=== PATIENT | female | born 1955 | race Caucasian/White ===

== ENCOUNTER 2018-07-03 06:28 | Inpatient (IN) | payer MEDICARE, MEDICAID ==
[2018-07-03 06:48] LABS: ADD MAN DIFF? NO
[2018-07-03] MEDS ORDERED: GELATIN SIZE 100 SPONGE (06:55)
[2018-07-03 07:01] LABS: BASOPHILS % 0.3 % (0.0-2.0); EOSINOPHILS # 0.2 10^3/ul (0.0-0.5); EOSINOPHILS % 1.7 % (0.0-7.0); HEMOGLOBIN 13.2 g/dl (12.0-16.0); LYMPHOCYTES # 3.3 10^3/ul (0.8-2.9); LYMPHOCYTES % 27.6 % (15.0-51.0); MEAN CORPUSCULAR HEMOGLOBIN 27.3 pg (29.0-33.0); MEAN CORPUSCULAR HGB CONC 30.7 g/dl (32.0-37.0); MEAN CORPUSCULAR VOLUME 88.8 fl (82.0-101.0); MEAN PLATELET VOLUME 9.5 fl (7.4-10.4); MONOCYTE # 0.7 10^3/ul (0.3-0.9); MONOCYTES % 6.3 % (0.0-11.0); NEUTROPHIL # 7.5 10^3/ul (1.6-7.5); NEUTROPHILS % 63.7 % (39.0-77.0); PLATELET COUNT 420 10^3/UL (140-415); RED BLOOD COUNT 4.84 10^6/ul (4.20-5.40); RED CELL DISTRIBUTION WIDTH 21.3 % (11.5-14.5)
[2018-07-03 07:01] LABS: WHITE BLOOD COUNT 11.8 10^3/ul (4.8-10.8)
[2018-07-03 07:17] LABS: INR 0.91; PROTIME 12.3 Sec (11.9-14.9)
[2018-07-03] MEDS ORDERED: ROCURONIUM 50 MG INJ (07:26)
[2018-07-03] MEDS ORDERED: PROPOFOL 20 ML (07:26)
[2018-07-03] MEDS ORDERED: FENTAnyl 50 MCG/ML VIAL (07:26)
[2018-07-03] MEDS ORDERED: CEFAZOLIN 1 GM INJ (07:26)
[2018-07-03] MEDS ORDERED: GLYCOPYRROLATE 0.4 MG INJ (07:26)
[2018-07-03] MEDS ORDERED: NEOSTIGMINE 3 MG/3 ML SYRINGE (07:26)
[2018-07-03] MEDS ORDERED: MIDAZOLAM 1 MG/ML 2 ML INJ (07:26)
[2018-07-03 07:27] LABS: ALANINE AMINOTRANSFERASE 15 IU/L (13-69); ALBUMIN 4.1 g/dl (3.3-4.9); ALBUMIN/GLOBULIN RATIO 1.07; ALKALINE PHOSPHATASE 114 IU/L (42-121); ANION GAP 9 (5-13); ASPARTATE AMINO TRANSFERASE 24 IU/L (15-46); BILIRUBIN,INDIRECT 0.3 mg/dl (0-1.1); BILIRUBIN,TOTAL 0.3 mg/dl (0.2-1.3); BLOOD UREA NITROGEN 13 mg/dl (7-20); CALCIUM 9.9 mg/dl (8.4-10.2); CARBON DIOXIDE 27 mmol/L (21-31); CHLORIDE 105 mmol/L (97-110); CREATININE 0.51 mg/dl (0.44-1.00); Estimated GFR > 60 mL/min (>60); GLUCOSE 95 mg/dl (70-220); POTASSIUM 4.1 mmol/L (3.5-5.1); SODIUM 141 mmol/L (135-144); TOTAL PROTEIN 7.9 g/dl (6.1-8.1)
[2018-07-03] MEDS ORDERED: DEXAMETHASONE 4 MG/ML 1 ML INJ (07:27)
[2018-07-03] MEDS ORDERED: ONDANSETRON 4 MG INJ (07:27)
[2018-07-03] MEDS ORDERED: MIDAZOLAM 1 MG/ML 2 ML INJ IV (07:30)
[2018-07-03] MEDS ORDERED: ALBUTEROL 0.083% (NEB) 2.5 MG/3 ML AMP HHN (07:30)
[2018-07-03] MEDS ORDERED: OXYCODONE/ACETAMINOPHEN (5/325) TAB PO ×2 (07:30)
[2018-07-03] MEDS ORDERED: TRIMETHOBENZAMIDE 100 MG/ML VIAL IM (07:30)
[2018-07-03] MEDS ORDERED: DIPHENHYDRAMINE 50 MG INJ IV (07:30)
[2018-07-03] MEDS ORDERED: LABETALOL HCL 20MG INJ IV ×2 (07:30→13:00)
[2018-07-03] MEDS ORDERED: HYDROmorphONE 1 MG/5 ML IV SYRINGE IV ×3 (07:30)
[2018-07-03] MEDS ORDERED: hydrALAzine 20 MG INJ IV ×3 (07:30→15:30)
[2018-07-03] MEDS ORDERED: FENTAnyl 50 MCG/ML VIAL IV ×2 (07:30)
[2018-07-03] MEDS ORDERED: EPHEDrine SULFATE 50 MG/5 ML SYG IV (07:30)
[2018-07-03] MEDS ORDERED: MEPERIDINE 25 MG INJ IV (07:30)
[2018-07-03] MEDS ORDERED: IPRATROPIUM (NEB) 0.5 MG/2.5 ML AMP HHN (07:30)
[2018-07-03] MEDS: POLYMYXIN/BACITRACIN 1L IRRIG (08:54)
[2018-07-03] MEDS: THROMBIN 5000 UNIT VIAL (08:55)
[2018-07-03] MEDS: ROPIVACAINE 0.5 % 30 ML VIAL (08:55)
[2018-07-03] MEDS ORDERED: hydrALAzine 20 MG INJ (09:27)
[2018-07-03] MEDS ORDERED: THROMBIN 5000 UNIT VIAL (09:52)
[2018-07-03] MEDS ORDERED: SUGAMMADEX SODIUM 200 MG/2 ML VIAL IV (10:19)
[2018-07-03] MEDS ORDERED: NACL 0.9% 3 ML SYG IV (11:00)
[2018-07-03] MEDS ORDERED: NALOXONE (0.4 MG/ML) INJ IV (11:00)
[2018-07-03] MEDS: ONDANSETRON 4 MG INJ IV (11:16)
[2018-07-03] MEDS: FENTAnyl 50 MCG/ML VIAL IV (11:16)
[2018-07-03] MEDS ORDERED: HYDROmorphONE 1 MG/ML SYG IV ×2 (11:30)
[2018-07-03] MEDS: HYDROmorphONE 1 MG/ML SYG IV (12:28)
[2018-07-03] MEDS: NS + KCL 20 MEQ 1,000 ML IV ×2 (13:00→20:25)
[2018-07-03] MEDS ORDERED: ONDANSETRON 4 MG INJ IV (15:30)
[2018-07-03] MEDS: HYDROCODONE/APAP (5/325) TAB PO ×2 (16:37→20:26)
[2018-07-03] MEDS: HYDROmorphONE 2 MG/ML SYG IV (17:41)
[2018-07-03] MEDS: CEFAZOLIN 2 GM/50 ML (PMX) 50 ML IVPB ×2 (18:41→22:34)
[2018-07-03] MEDS: GABAPENTIN 400 MG CAP PO (20:25)
[2018-07-04] MEDS: NS + KCL 20 MEQ 1,000 ML IV (04:27)
[2018-07-04] MEDS: HYDROCODONE/APAP (5/325) TAB PO ×4 (04:36→21:49)
[2018-07-04 05:04] LABS: HEMATOCRIT 33.8 % (37.0-47.0); HEMOGLOBIN 10.4 g/dl (12.0-16.0)
[2018-07-04 05:32] LABS: ANION GAP 8 (5-13); BLOOD UREA NITROGEN 11 mg/dl (7-20); CARBON DIOXIDE 25 mmol/L (21-31); CHLORIDE 108 mmol/L (97-110); CREATININE 0.38 mg/dl (0.44-1.00); Estimated GFR > 60 mL/min (>60); GLUCOSE 88 mg/dl (70-220); POTASSIUM 4.2 mmol/L (3.5-5.1); SODIUM 141 mmol/L (135-144)
[2018-07-04] MEDS: PANTOPRAZOLE (EC) 40 MG TAB PO (05:36)
[2018-07-04] MEDS: CEFAZOLIN 2 GM/50 ML (PMX) 50 ML IVPB ×3 (05:36→21:49)
[2018-07-04] MEDS: DULOXETINE 30 MG CAP DR PO (09:08)
[2018-07-04] MEDS: GABAPENTIN 400 MG CAP PO ×3 (09:08→20:45)
[2018-07-04] MEDS: HYDROmorphONE 2 MG/ML SYG IV ×2 (11:14→17:37)
[2018-07-05] MEDS: HYDROmorphONE 2 MG/ML SYG IV (03:41)
[2018-07-05 05:30] LABS: ADD MAN DIFF? NO
[2018-07-05 05:47] LABS: WHITE BLOOD COUNT 16.1 10^3/ul (4.8-10.8)
[2018-07-05 05:47] LABS: ABNORMAL IP MESSAGE 1; BASOPHILS % 0.2 % (0.0-2.0); EOSINOPHILS % 0.2 % (0.0-7.0); HEMATOCRIT 36.2 % (37.0-47.0); HEMOGLOBIN 10.9 g/dl (12.0-16.0); LYMPHOCYTES # 3.9 10^3/ul (0.8-2.9); LYMPHOCYTES % 24.1 % (15.0-51.0); MEAN CORPUSCULAR HEMOGLOBIN 28.2 pg (29.0-33.0); MEAN CORPUSCULAR HGB CONC 30.1 g/dl (32.0-37.0); MEAN CORPUSCULAR VOLUME 93.5 fl (82.0-101.0); MEAN PLATELET VOLUME 9.8 fl (7.4-10.4); MONOCYTE # 1.6 10^3/ul (0.3-0.9); MONOCYTES % 9.8 % (0.0-11.0); NEUTROPHIL # 10.4 10^3/ul (1.6-7.5); PLATELET COUNT 321 10^3/UL (140-415); RED BLOOD COUNT 3.87 10^6/ul (4.20-5.40); RED CELL DISTRIBUTION WIDTH 21.8 % (11.5-14.5)
[2018-07-05 05:52] LABS: POSITIVE DIFF @See below
[2018-07-05] MEDS: CEFAZOLIN 2 GM/50 ML (PMX) 50 ML IVPB (06:06)
[2018-07-05] MEDS: PANTOPRAZOLE (EC) 40 MG TAB PO (06:06)
[2018-07-05 06:16] LABS: ANION GAP 5 (5-13); BLOOD UREA NITROGEN 11 mg/dl (7-20); CALCIUM 8.1 mg/dl (8.4-10.2); CARBON DIOXIDE 29 mmol/L (21-31); CHLORIDE 106 mmol/L (97-110); CREATININE 0.42 mg/dl (0.44-1.00); Estimated GFR > 60 mL/min (>60); GLUCOSE 103 mg/dl (70-220); POTASSIUM 4.4 mmol/L (3.5-5.1); SODIUM 140 mmol/L (135-144)
[2018-07-05] MEDS: GABAPENTIN 400 MG CAP PO ×3 (08:43→20:34)
[2018-07-05] MEDS: DULOXETINE 30 MG CAP DR PO (08:43)
[2018-07-05] MEDS: HYDROCODONE/APAP (5/325) TAB PO ×3 (08:43→19:40)
[2018-07-05] MEDS: CYCLOBENZAPRINE 10 MG TAB PO (22:54)
[2018-07-06] MEDS: HYDROCODONE/APAP (5/325) TAB PO ×5 (03:46→21:50)
[2018-07-06] MEDS: PANTOPRAZOLE (EC) 40 MG TAB PO (06:35)
[2018-07-06] MEDS: GABAPENTIN 400 MG CAP PO ×3 (08:36→20:28)
[2018-07-06] MEDS: DULOXETINE 30 MG CAP DR PO (08:37)
[2018-07-06] MEDS: CYCLOBENZAPRINE 10 MG TAB PO ×3 (08:37→21:26)
[2018-07-06] MEDS: AL HYDROX/MG HYDROX/SIMETH 30 ML CUP PO ×2 (12:37→17:33)
[2018-07-06 14:45] LABS: ADD MAN DIFF? NO
[2018-07-06 14:47] LABS: BASOPHILS % 0.2 % (0.0-2.0); EOSINOPHILS # 0.1 10^3/ul (0.0-0.5); HEMATOCRIT 33.8 % (37.0-47.0); HEMOGLOBIN 10.3 g/dl (12.0-16.0); LYMPHOCYTES # 2.5 10^3/ul (0.8-2.9); LYMPHOCYTES % 17.9 % (15.0-51.0); MEAN CORPUSCULAR HEMOGLOBIN 27.7 pg (29.0-33.0); MEAN CORPUSCULAR HGB CONC 30.5 g/dl (32.0-37.0); MEAN CORPUSCULAR VOLUME 90.9 fl (82.0-101.0); MEAN PLATELET VOLUME 9.6 fl (7.4-10.4); MONOCYTE # 1.2 10^3/ul (0.3-0.9); MONOCYTES % 8.5 % (0.0-11.0); NEUTROPHIL # 10.2 10^3/ul (1.6-7.5); NEUTROPHILS % 71.8 % (39.0-77.0); PLATELET COUNT 315 10^3/UL (140-415); RED BLOOD COUNT 3.72 10^6/ul (4.20-5.40); RED CELL DISTRIBUTION WIDTH 20.7 % (11.5-14.5)
[2018-07-06 14:47] LABS: WHITE BLOOD COUNT 14.2 10^3/ul (4.8-10.8)
[2018-07-06 15:07] LABS: ANION GAP 7 (5-13); BLOOD UREA NITROGEN 10 mg/dl (7-20); CALCIUM 8.6 mg/dl (8.4-10.2); CARBON DIOXIDE 29 mmol/L (21-31); CHLORIDE 101 mmol/L (97-110); CREATININE 0.44 mg/dl (0.44-1.00); Estimated GFR > 60 mL/min (>60); GLUCOSE 114 mg/dl (70-220); POTASSIUM 4.1 mmol/L (3.5-5.1); SODIUM 137 mmol/L (135-144)
[2018-07-06 15:08] LABS: LACTIC ACID 0.8 mmol/L (0.5-2.0)
[2018-07-07 05:28] LABS: ADD MAN DIFF? NO
[2018-07-07 05:37] LABS: BASOPHILS % 0.3 % (0.0-2.0); EOSINOPHILS # 0.3 10^3/ul (0.0-0.5); EOSINOPHILS % 2.2 % (0.0-7.0); HEMATOCRIT 31.7 % (37.0-47.0); LYMPHOCYTES # 2.7 10^3/ul (0.8-2.9); LYMPHOCYTES % 21.2 % (15.0-51.0); MEAN CORPUSCULAR HEMOGLOBIN 28.2 pg (29.0-33.0); MEAN CORPUSCULAR HGB CONC 31.5 g/dl (32.0-37.0); MEAN CORPUSCULAR VOLUME 89.5 fl (82.0-101.0); MEAN PLATELET VOLUME 9.9 fl (7.4-10.4); MONOCYTES % 8.1 % (0.0-11.0); NEUTROPHIL # 8.5 10^3/ul (1.6-7.5); NEUTROPHILS % 67.6 % (39.0-77.0); PLATELET COUNT 337 10^3/UL (140-415); RED BLOOD COUNT 3.54 10^6/ul (4.20-5.40); RED CELL DISTRIBUTION WIDTH 20.5 % (11.5-14.5)
[2018-07-07 05:37] LABS: WHITE BLOOD COUNT 12.6 10^3/ul (4.8-10.8)
[2018-07-07] MEDS: PANTOPRAZOLE (EC) 40 MG TAB PO (06:07)
[2018-07-07] MEDS: HYDROCODONE/APAP (5/325) TAB PO ×2 (06:07→22:28)
[2018-07-07 06:19] LABS: ANION GAP 8 (5-13); BLOOD UREA NITROGEN 8 mg/dl (7-20); CALCIUM 8.5 mg/dl (8.4-10.2); CARBON DIOXIDE 29 mmol/L (21-31); CHLORIDE 103 mmol/L (97-110); CREATININE 0.41 mg/dl (0.44-1.00); Estimated GFR > 60 mL/min (>60); GLUCOSE 95 mg/dl (70-220); POTASSIUM 4.1 mmol/L (3.5-5.1); SODIUM 140 mmol/L (135-144)
[2018-07-07] MEDS: CYCLOBENZAPRINE 10 MG TAB PO ×3 (09:16→20:46)
[2018-07-07] MEDS: DULOXETINE 30 MG CAP DR PO (09:16)
[2018-07-07] MEDS: GABAPENTIN 400 MG CAP PO ×3 (09:17→20:46)
[2018-07-07] MEDS: HYDROmorphONE 0.5 MG/0.5 ML SYG IV ×3 (09:17→18:54)
[2018-07-07] MEDS: AL HYDROX/MG HYDROX/SIMETH 30 ML CUP PO ×2 (14:09→20:46)
[2018-07-08] MEDS: PANTOPRAZOLE (EC) 40 MG TAB PO (06:16)
[2018-07-08] MEDS: AL HYDROX/MG HYDROX/SIMETH 30 ML CUP PO (06:16)
[2018-07-08] MEDS: HYDROCODONE/APAP (5/325) TAB PO ×3 (07:58→17:16)
[2018-07-08] MEDS: DULOXETINE 30 MG CAP DR PO (09:05)
[2018-07-08] MEDS: CYCLOBENZAPRINE 10 MG TAB PO ×2 (09:06→12:53)
[2018-07-08] MEDS: GABAPENTIN 400 MG CAP PO ×2 (09:06→12:53)
== END 2018-07-08 17:15 | DRG 458 ==
LOC: REC 06:28 → MS1 07-05 05:57 → ICU 10:42
PROC: 0SG10K1 Fusion of 2 or more Lumbar Vertebral Joints with Nonautologous Tissue Substitute, Posterior Approach, Posterior Column, Open Approach (ICD-10-PCS; principal; 2018-07-03 07:30)
PROC: 0QB00ZX Excision of Lumbar Vertebra, Open Approach, Diagnostic (ICD-10-PCS; 2018-07-03 07:30)
PROC: 0SG30K1 Fusion of Lumbosacral Joint with Nonautologous Tissue Substitute, Posterior Approach, Posterior Column, Open Approach (ICD-10-PCS; 2018-07-03 07:30)
PROC: 0QB10ZX Excision of Sacrum, Open Approach, Diagnostic (ICD-10-PCS; 2018-07-03 07:30)
DX: M48.56XA Collapsed vertebra, not elsewhere classified, lumbar region, initial encounter for fracture (principal); M54.5 Low back pain; E66.9 Obesity, unspecified; Z68.31 Body mass index [BMI] 31.0-31.9, adult; Z90.49 Acquired absence of other specified parts of digestive tract; Z90.710 Acquired absence of both cervix and uterus; K21.9 Gastro-esophageal reflux disease without esophagitis; D72.829 Elevated white blood cell count, unspecified
CPT/HCPCS: 71045; 72100; 72131; 80048; 80053; 83605; 85014; 85018; 85025; 85610; 85730; 86850; 86900; 86901; 87081; 88304; 88307; 88311; 93005; 97110; 97116; 97163; 97530

== ENCOUNTER 2018-07-08 18:00 | Inpatient (IN) | payer MEDICARE, MEDICAID ==
[2018-07-08] MEDS ORDERED: LACTULOSE 30ML CUP PO (18:30)
[2018-07-08] MEDS ORDERED: ONDANSETRON 4 MG INJ IV (18:30)
[2018-07-08 19:44] LABS: ADD UMIC YES; UR ASCORBIC ACID NEGATIVE (NEGATIVE); UR BILIRUBIN (Dip) NEGATIVE (NEGATIVE); UR BLOOD (Dip) NEGATIVE (NEGATIVE); UR CLARITY CLEAR (CLEAR); UR COLOR YELLOW (YELLOW); UR GLUCOSE (Dip) NEGATIVE (NEGATIVE); UR KETONES (Dip) NEGATIVE (NEGATIVE); UR LEUKOCYTE ESTERASE (Dip) 1+ Leu/ul (NEGATIVE); UR NITRITE (Dip) NEGATIVE (NEGATIVE); UR RBC 1 /HPF (0-5); UR SPECIFIC GRAVITY (Dip) 1.011 (1.003-1.030); UR SQUAMOUS EPITHELIAL CELL FEW /HPF (FEW); UR TOTAL PROTEIN (Dip) NEGATIVE (NEGATIVE); UR UROBILINOGEN (Dip) NEGATIVE (NEGATIVE); UR WBC 6 /HPF (0-5)
[2018-07-08] MEDS: MAGNESIUM HYDROXIDE 30ML CUP PO (20:48)
[2018-07-08] MEDS: HYDROCODONE/APAP (5/325) TAB PO (20:48)
[2018-07-08] MEDS: GABAPENTIN 400 MG CAP PO (20:49)
[2018-07-08] MEDS ORDERED: BISACODYL 10 MG SUPP PR (21:30)
[2018-07-08] MEDS: ACETAMINOPHEN 325 MG TAB PO (23:12)
[2018-07-09] MEDS: HYDROCODONE/APAP (5/325) TAB PO ×4 (03:35→18:46)
[2018-07-09] MEDS: PANTOPRAZOLE (EC) 40 MG TAB PO (06:08)
[2018-07-09 06:40] LABS: ADD MAN DIFF? NO
[2018-07-09 06:43] LABS: WHITE BLOOD COUNT 11.3 10^3/ul (4.8-10.8)
[2018-07-09 06:43] LABS: BASOPHILS % 0.4 % (0.0-2.0); EOSINOPHILS # 0.4 10^3/ul (0.0-0.5); EOSINOPHILS % 3.5 % (0.0-7.0); HEMATOCRIT 32.1 % (37.0-47.0); HEMOGLOBIN 9.9 g/dl (12.0-16.0); LYMPHOCYTES # 2.9 10^3/ul (0.8-2.9); LYMPHOCYTES % 25.7 % (15.0-51.0); MEAN CORPUSCULAR HEMOGLOBIN 27.9 pg (29.0-33.0); MEAN CORPUSCULAR HGB CONC 30.8 g/dl (32.0-37.0); MEAN CORPUSCULAR VOLUME 90.4 fl (82.0-101.0); MEAN PLATELET VOLUME 9.8 fl (7.4-10.4); MONOCYTE # 0.9 10^3/ul (0.3-0.9); MONOCYTES % 7.7 % (0.0-11.0); NEUTROPHIL # 7.1 10^3/ul (1.6-7.5); NEUTROPHILS % 62.3 % (39.0-77.0); PLATELET COUNT 376 10^3/UL (140-415); RED BLOOD COUNT 3.55 10^6/ul (4.20-5.40)
[2018-07-09 07:19] LABS: ALANINE AMINOTRANSFERASE 10 IU/L (13-69); ALBUMIN 3.2 g/dl (3.3-4.9); ALKALINE PHOSPHATASE 102 IU/L (42-121); ANION GAP 7 (5-13); ASPARTATE AMINO TRANSFERASE 19 IU/L (15-46); BILIRUBIN,INDIRECT 0.3 mg/dl (0-1.1); BILIRUBIN,TOTAL 0.3 mg/dl (0.2-1.3); BLOOD UREA NITROGEN 11 mg/dl (7-20); CALCIUM 8.6 mg/dl (8.4-10.2); CARBON DIOXIDE 28 mmol/L (21-31); CHLORIDE 104 mmol/L (97-110); CREATININE 0.44 mg/dl (0.44-1.00); Estimated GFR > 60 mL/min (>60); GLUCOSE 94 mg/dl (70-220); POTASSIUM 4.2 mmol/L (3.5-5.1); SODIUM 139 mmol/L (135-144); TOTAL PROTEIN 6.4 g/dl (6.1-8.1)
[2018-07-09] MEDS: GABAPENTIN 400 MG CAP PO ×3 (08:56→21:09)
[2018-07-09] MEDS: DULOXETINE 30 MG CAP DR PO (08:56)
[2018-07-09] MEDS: DOCUSATE SODIUM 100 MG CAP PO ×2 (08:57→21:09)
[2018-07-09] MEDS: INFLUENZA VIRUS VACCINE 0.5 ML (DISPENSING) IM* (09:52)
[2018-07-09] MEDS: SENNA TAB PO (21:09)
[2018-07-10] MEDS: HYDROCODONE/APAP (5/325) TAB PO ×5 (00:01→21:01)
[2018-07-10] MEDS: PANTOPRAZOLE (EC) 40 MG TAB PO (06:53)
[2018-07-10] MEDS: DULOXETINE 30 MG CAP DR PO (09:27)
[2018-07-10] MEDS: DOCUSATE SODIUM 100 MG CAP PO ×2 (09:27→20:40)
[2018-07-10] MEDS: GABAPENTIN 400 MG CAP PO ×3 (09:27→20:40)
[2018-07-10] MEDS: SENNA TAB PO (20:40)
[2018-07-11] MEDS: PANTOPRAZOLE (EC) 40 MG TAB PO (06:37)
[2018-07-11] MEDS: HYDROCODONE/APAP (5/325) TAB PO ×4 (06:38→20:15)
[2018-07-11] MEDS: ACETAMINOPHEN 325 MG TAB PO (08:54)
[2018-07-11] MEDS: DULOXETINE 30 MG CAP DR PO (10:47)
[2018-07-11] MEDS: DOCUSATE SODIUM 100 MG CAP PO ×2 (10:48→20:14)
[2018-07-11] MEDS: GABAPENTIN 400 MG CAP PO ×3 (10:51→20:14)
[2018-07-11] MEDS: BACLOFEN 10 MG TAB PO ×2 (15:19→20:14)
[2018-07-11] MEDS: SENNA TAB PO (20:14)
[2018-07-12] MEDS: HYDROCODONE/APAP (5/325) TAB PO ×4 (03:36→19:22)
[2018-07-12] MEDS: PANTOPRAZOLE (EC) 40 MG TAB PO (06:41)
[2018-07-12] MEDS: DOCUSATE SODIUM 100 MG CAP PO ×2 (09:02→20:04)
[2018-07-12] MEDS: DULOXETINE 30 MG CAP DR PO (09:02)
[2018-07-12] MEDS: BACLOFEN 10 MG TAB PO ×3 (09:02→20:04)
[2018-07-12] MEDS: GABAPENTIN 400 MG CAP PO ×3 (09:49→20:04)
[2018-07-12] MEDS: SENNA TAB PO (20:04)
[2018-07-13] MEDS: HYDROCODONE/APAP (5/325) TAB PO ×3 (00:13→10:28)
[2018-07-13] MEDS: PANTOPRAZOLE (EC) 40 MG TAB PO (06:23)
[2018-07-13] MEDS: DULOXETINE 30 MG CAP DR PO (08:19)
[2018-07-13] MEDS: GABAPENTIN 400 MG CAP PO (08:19)
[2018-07-13] MEDS: BACLOFEN 10 MG TAB PO (08:19)
[2018-07-13] MEDS: DOCUSATE SODIUM 100 MG CAP PO (08:19)
[2018-07-13] MEDS: ACETAMINOPHEN 325 MG TAB PO (08:45)
== END 2018-07-13 12:15 | disposition home health service (06) | DRG 561 ==
LOC: VRC 18:00
PROC: F07Z5ZZ Bed Mobility Treatment (ICD-10-PCS; principal; 2018-07-08)
PROC: F08Z2ZZ Grooming/Personal Hygiene Treatment (ICD-10-PCS; 2018-07-08)
DX: M48.56XD Collapsed vertebra, not elsewhere classified, lumbar region, subsequent encounter for fracture with routine healing (principal); G89.18 Other acute postprocedural pain; M54.5 Low back pain; F32.9 Major depressive disorder, single episode, unspecified; E66.9 Obesity, unspecified; Z68.31 Body mass index [BMI] 31.0-31.9, adult; K21.9 Gastro-esophageal reflux disease without esophagitis
CPT/HCPCS: 80053; 81001; 85025; 87081; 87086; 90686; 97110; 97116; 97163; 97167; 97530; 97535